=== PATIENT | male | born 1960 | race Caucasian/White ===

== ENCOUNTER 2021-02-15 22:39 | Emergency (ER) | payer OTHER ==
[~2021-02-15] VITALS: Ht 170.2 cm; Wt 102.1 kg
--- NOTE | 2021-02-15 22:40 | NUR ---
PT BROUGHT TO BED 10 VIA [facility]
[2021-02-15 22:42] VITALS: BP 152/69
--- NOTE | 2021-02-15 22:42 | NUR ---
PATIENT BIBA FROM HOME C/O WORSENING SYMPT OF COVID 19 SYMP X2WKS. PATIENT HAS N/V, FEVER, MYALGIA, COUGH, & DIFFICULTY CATCHING BREATH. BREATH SOUNDS ARE CLEAR WITH DIMINISHED BILATERAL LOBES. PATIENT HASNT BEEN ABLE TO EAT OR TAKE MEDICATIONS. PER EMS PATIENT BG OF 280. BACK PAIN 6/10 PAIN SHARP AND "IT FEELS LIKE SOMEONE IS STABBING ME" AND CONSTANT PAIN. AAOX4. INCREASE HEART RATE ABOUT 110s. PATIENT'S COVID + AND PATIENT HAS NOT BEEN TESTED. PMH: HTN, DM NKA
[2021-02-15] MEDS ORDERED: NACL 0.9% 1,000 ML IV ONE (23:20)
[2021-02-15] MEDS ORDERED: ACETAMINOPHEN 325 MG TAB PO ONE (23:35)
[2021-02-15] MEDS ORDERED: ONDANSETRON 4 MG/2 ML VIAL IVP ONE (23:35)
--- NOTE | 2021-02-15 23:35 | NUR ---
For updates call jayy Price: #[phone]
--- NOTE | 2021-02-15 23:45 | NUR ---
ERMD at bedside for examination of patient
[2021-02-15 23:51] LABS: EOSINOPHILS % (AUTO) 0.9 % (0.0-4.0); HEMOGLOBIN 16.3 g/dL (12.0-18.0); LYMPHOCYTES # (AUTO) 0.5 K/uL (2.0-11.5); LYMPHOCYTES % (AUTO) 10.9 % (20.5-51.1); MEAN CORPUSCULAR HEMOGLOBIN 29 pg (27-31); MEAN CORPUSCULAR HGB CONC 35 g/dL (33-37); MEAN CORPUSCULAR VOLUME 83.9 fL (80-94); MONOCYTES # (AUTO) 0.3 K/uL (0.8-1.0); MONOCYTES % (AUTO) 7.2 % (1.7-9.3); NEUTROPHILS # (AUTO) 3.9 K/uL (1.8-7.7); PLATELET COUNT (AUTO) 112 K/uL (140-450); RED CELL DISTRIBUTION WIDTH 13.3 % (11.6-13.7); WHITE BLOOD COUNT (AUTO) 4.8 K/uL (4.8-10.8)
[2021-02-16] LABS: ALBUMIN 3.5 g/dL (3.4-5.0); ANION GAP 16.5 (8-16); CARBON DIOXIDE 27.7 mmol/L (21-32); POTASSIUM 3.2 mmol/L (3.5-5.1)
[2021-02-16] MEDS ORDERED: POTASSIUM CHLORIDE 10 MEQ TABER PO ONE (00:30)
[2021-02-16] MEDS ORDERED: AZITHROMYCIN 250 MG TAB PO ONE (00:50)
[2021-02-16] MEDS ORDERED: cefTRIAXone 1,000 MG VIAL ONE (01:07)
--- NOTE | 2021-02-16 03:15 | NUR ---
EARNEST READE [phone]
--- NOTE | 2021-02-16 04:59 | NUR ---
Patient appears to be resting comfortably in bed- low fowlers with eyes closed. Vital Signs within normal limits. Respirations even and unlabored. patient has 4/10 pain but patient able to tolerable. patient attached to manager monitoring, safety measures are in place, and will continue to monitor patient
--- NOTE | 2021-02-16 05:02 | NUR ---
Patient to be transferred to [facility] ER. Is being transferred due to insurance purposes. Receiving facility has accepting physician and available space. ER physician has signed transfer form. Patient or responsible libertarian has agreed to transfer and signed form. Patient belongings inventoried and will be sent with patient. Copy of nursing notes, lab reports, EKG, Physicians Orders and X-rays to be sent with patient. Report called to Panchito SALAS at receiving facility. [facility] ambulance service has been called for transfer. ETA is 0600 today.
[2021-02-16 06:19] VITALS: BP 147/83
--- NOTE | 2021-02-16 06:19 | NUR ---
[facility] TRANSPORT TAKEN PATIENT AWAY VIA [facility].
== END 2021-02-16 06:19 | disposition short-term general hospital (02) ==
LOC: MED 22:39
DX: J18.9 Pneumonia, unspecified organism (principal); Z20.822 Contact with and (suspected) exposure to COVID-19; E87.6 Hypokalemia; E11.65 Type 2 diabetes mellitus with hyperglycemia
CPT/HCPCS: 36415; 36600; 71045; 80053; 82009; 82803; 83605; 85025; 87040; 87426; 96361; 96365; 96375; 99285; J0696; J2405; J7030; Q0092; U0003; 99283; 99284